=== PATIENT | male | born 1945 | race Caucasian/White ===

== ENCOUNTER → 2016-08-08 | Outpatient (CLI) | payer OTHER ==
[2016-08-08 15:12] LABS: CREATININE 1.7 mg/dL (0.7-1.3)
== END ==
LOC: CAT 14:15
PROVIDERS: Family Medicine
DX: J32.0 Chronic maxillary sinusitis (principal); R22.1 Localized swelling, mass and lump, neck

== ENCOUNTER 2018-07-23 10:53 | Inpatient (IN) | payer OTHER ==
[2018-07-23] VITALS (11 sets, daily range): BP systolic 106–130; BP diastolic 51–71
[~2018-07-23] VITALS: Ht 175.3 cm; Wt 76.4 kg
[2018-07-23 11:34] LABS: HEMATOCRIT 30.3 % (42.0-52.0); HEMOGLOBIN 10.1 gm/dL (14.0-18.0); MCH 27.5 pg (26.0-34.0); MCHC 33.3 g/dL (28.0-37.0); MCV 82.6 fL (80.0-100.0); RBC 3.66 mil/uL (4.50-6.00); RDW 18.1 % (10.5-14.5); WBC 5.2 thou/uL (4.0-11.0)
[2018-07-23 11:42] LABS: CALCIUM 9.3 mg/dL (8.5-10.1); POTASSIUM 4.3 mmol/L (3.5-5.1)
[2018-07-23] MEDS ORDERED: ADVAIR 100-501 EACH INH (12:17)
[2018-07-23] MEDS ORDERED: LASIX 40 MG TAB40 M2 PO (12:18)
[2018-07-23] MEDS ORDERED: SYNTHROID125 MC1 PO (12:19)
[2018-07-23] MEDS ORDERED: MAG-OXIDE400 MG PO (12:19)
[2018-07-23] MEDS ORDERED: KLOR-CON 1010 MEQ PO (12:20)
--- NOTE | 2018-07-23 16:57 | CATHLAB ---
[facility] [address] [place] [address] INVASIVE PROCEDURE REPORT Name: MYRIAM JOHNSON Room #: 212-[facility]#: [id number] ������������� Admission: 07/23/18 ������������� Attend Phys: Jordan Peter, Discharge: ��� ������������� ��� Date of : 49 Date of Service: 07/23/18 1656 �� Report #: [id number] �������� ��������������������������������������������[id number] THIS REPORT FOR: //name// APPROVED REPORT Study performed: 07/23/2018 13:48:27 Patient Details Patient Status: In-Patient Room #: The patient is a 73 year-old male Event Personnel Jordan Peter Docking Pilot, Zain Means RN, Justin Martin RN RN, Freda Galarza Monitor, Barbara Keyes RTR, SAWMILL HAND Scrub Procedures Performed Art Access - R femoral artery* Jimbo Access - R femoral vein 52623 Initial Mod Sed Same Phys/QHP Gr5y 300063 72323 Mod Sed Same Phys/QHP Ea 579343 Right and Left Heart Cath w/or w/o Coronarie 7029210 [facility]HC Aortogram Abdominal Peripheral Angio 383037 Hemostasis w/ Mynx BMS Place w/wo Plasty Single LAD [id number] BMSSINGLE Indication Chest pain Procedure Narrative The patient was brought urgently to the Cardiac Catheterization Laboratory and was prepped and draped in a sterile manner. The Right Groin^ was infiltrated with 1% Lidocaine subcutaneous anesthesia. A Right Heart Catheterization was performed with a 7 Fr. [place]-Terry catheter and pressure were recorded. Cardiac outputs were obtained by the Thermal Dilution method. A PINNACLE 6FR Sheath #[id number] sheath was inserted into the RFA^. Coronary angiography was performed using coronary diagnostic catheters. The right coronary system was accessed and visualized with a JR 4 catheter. The left coronary system was accessed and visualized with a JL 4 catheter. The left ventricle was accessed and visualized with a Pigtail catheter. Left ventricular/Aortic Valve gradient assessed via catheter pullback. Left ventriculogram was performed in AGUERO projection. An aortogram of the abdominal aorta was performed. Closure device was deployed with a 6 Fr Mynx. The patient tolerated the procedure well and there were no complications associated with the procedure. There was no hematoma. [facility] [address] [place] [address] INVASIVE PROCEDURE REPORT Name: MYRIAM JOHNSON Room #: 212-P [facility]#: [id number] ������������� Admission: 07/23/18 ������������� Attend Phys: Jordan Peter, Discharge: ��� ������������� ��� Date of : 49 Date of Service: 07/23/18 1656 �� Report #: [id number] �������� ��������������������������������������������[id number] Intraoperative Conscious Sedation Sedation start time: 14:37 Case end Time: 15:56 Fentanyl 25 mcg Versed 1 mg Fluoro Time: 17.22 minutes Dose: DAP 93658.00 cGycm2 3245 mGy Contrast Type and Amount: Omnipaque 200 ml Hemodynamics The right atrial mean pressure is 13 mmHg. The right ventricular pressure is 63/0 mmHg. The pulmonary artery pressure is 60/28 mmHg with a mean of 42 mmHg. The mean pulmonary capillary wedge pressure is 32 mmHg. The aortic pressure is 129/54 mmHg with a mean of 84 mmHg. The left ventricular pressure is 153/10 mmHg with a mean of mmHg. The left ventricular end diastolic pressure is 27 mmHg. The cardiac output using thermo method is 5.25 L/min. The cardiac index using thermo method is 2.76 L/min/m2. PCI Technique Lesion Percutaneous coronary intervention was performed on the proximal left anterior descending artery segment. A LAUNCHER 6FR EBU 4 #[id number] Guide Catheter was used to engage the ostium. A Luge Wire .014 x 182CM #[id number] Interventional Guidewire was used to cross the lesion. BALLOON DILATION A Balloon catheter Sprinter OTW 2.25 x 12 #[id number] was inserted and inflated up to 10.00atm for 19seconds. Additional Inflation: 12.00atm for 18seconds. Additional Inflation: 14.00atm for 22seconds. STENT DEPLOYMENT A bare metal stent INTEGRITY OTW 2.75 X 18 #[id number] was inserted and inflated up to 12.00atm for 22seconds. STENT DEPLOYMENT A bare metal stent INTEGRITY OTW 2.5 X 8 #[id number] was inserted and inflated up to 14.00atm for 24seconds. Additional Inflation: 20.00atm for 16seconds. Conclusion #1 successful PTCA stent of the proximal LAD tandem lesions with 25 and 2.75 bare-metal stents up to 2.9 yielding 0% residual and filling a diagonal branch. #2 unsuccessful PTCA of the mid LAD occlusion. However there is collateral filling from the right system and this diagonal branch [facility] [address] [place] [address] INVASIVE PROCEDURE REPORT Name: MYRIAM JOHNSON Room #: 212-P [facility]#: [id number] ������������� Admission: 07/23/18 ������������� Attend Phys: Jordan NestorOlinda FarnsworthBrittani, Discharge: ��� ������������� ��� Date of : 49 Date of Service: 07/23/18 1656 �� Report #: [id number] �������� ��������������������������������������������[id number] which now has markedly improved flow post proximal LAD stent. ( significant anterior apical defect is noted) #3 circumflex OM eccentric long 60% lesion and a proximal OM mild disease and a circumflex artery. There is significant distribution of the proximal OM system. Although anatomically nondominant #4 large dominant right coronary artery with eccentric 50-60% long mid vessel lesion tortuous system large PDA and smaller posterior lateral branch provides some collateral filling to a distal OM and distal LAD #5 large posterior lateral branches and eccentric 70% proximal lesion with the PDA diffusely diseased this collaterally fills the distal LAD as it extends around the apex #6 left main with distal lesion of 30% giving rise to LAD and circumflex #7 normal left ventricular size with an extensive anterior wall severe hypokinesis. Ejection fraction 30-35% #8 there is a 20 mm gradient on pullback across a moderate aortic valve stenosis. However I was able to cross this valve with the pigtail catheter. Less I would question this degree of stenosis. Would not consider this to be more than moderate in nature #8 aortogram abdominal no aneurysm brisk flow in renal and iliac system #9 successful right heart catheterization with significant elevations in pulmonary E wedge and PA pressure 70/30 range see above hemodynamics. Impression: Aggressive risk factor modification IV diuresis. Christian catheter is been placed. May be some improvement with stenting of the proximal LAD now filling a diagonal. Unsuccessful in opening up a mid blunted off the LAD. 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 Collateral filling is noted from other regions. Posterior lateral branch proximal segment is large and may be an area for possible stenting in the future all appears to be in the 70% range. Transfer to CCU in guarded condition will need aggressive diuresis and institution of medications for cardiomyopathy ischemic in nature. ��������������������������������������������� <ELECTRONICALLY SIGNED> ���������������������������������������� By: Jordan Peter MD, [facility] ��������������������������������������������� 07/23/18 1656 1656 1656 Jordan Peter MD, FACC /INF
--- NOTE | 2018-07-23 17:00 | NUR ---
RECEIVED PT FROM WASTE ELIMINATION, VSS. NSR R GROIN MYNX SITE WITHOUT HEMATOMA OR BRUIT HEARD. PT INSTRUCTED BEDREST WITH R LEG STRAIGHT X 3 HOURS. LUNGS CLEAR 2L SAT IS 100%. SEE DATA FLOW SHEET FOR FREQUENT GROIN CHECKS AND VITAL SIGNS. WILL CONTINUE TO MONITER AND CARE FOR PT PERPLAN OF CARE
--- NOTE | 2018-07-23 17:03 | EKG ---
[place] [address] 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 DALTON : 1945 Requested By: Jordan Peter Order Number: [id number] MD: Cheikh Tran Measurements Intervals [place] Rate: 67 P: 0 AL: 197 QRS: -27 QRSD: 101 T: 20 QT: 433 QTc: 457 Interpretive Statements Sinus arrhythmia Inferior infarct, old Anteroseptal infarct, age indeterminate No previous ECG available for comparison Electronically Signed On 07-23-2018 17:03:10 CDT by Cheikh Tran [email or web address] ��������������������������������������������� <ELECTRONICALLY SIGNED> ���������������������������������������� By: Cheikh Tran MD, [facility] ��������������������������������������������� 07/23/18 1703 113 113 Cheikh Tran MD, [facility] /EPI
[2018-07-24 00:14] VITALS: BP 113/59
--- NOTE | 2018-07-24 04:19 | NUR ---
ASSUMED PT CARE AT 1900. PT OFF BEDREST AT THIS TIME, A/OX4, VITAL SIGNS STABLE, ASSESSMENT CHARTED. GROIN SITE CLEAN, DRY, AND INTACT. NO HEMATOMA, 2/2 PULSES ON BOTH EXTREMITIES. NO COMPLAINTS OF PAIN. PT WALKED TO BATHROOM X1 ASSIST. TOLERATED ACTIVITY APPROPRIATLY. AT BEDSIDE AND STATES THAT HE IS DOING ALOT BETTER. PT RESTED WELL THROUGH THE NIGHT. SOMETIMES SITS BY THE SIDE OF THE BED FOR COMFORT. PT PROGRESSING TOWARD PLAN OF CARE. NWILL CONTINUE TO MONITOR.
[2018-07-24 04:26] LABS: HEMATOCRIT 31.2 % (42.0-52.0); HEMOGLOBIN 10.3 gm/dL (14.0-18.0); MCH 27.2 pg (26.0-34.0); MCHC 33.2 g/dL (28.0-37.0); MCV 82.1 fL (80.0-100.0); RBC 3.8 mil/uL (4.50-6.00); RDW 18.7 % (10.5-14.5); WBC 7.4 thou/uL (4.0-11.0)
[2018-07-24 04:35] VITALS: BP 132/52
[2018-07-24 04:43] LABS: ALBUMIN 3.3 g/dL (3.4-5.0); CALCIUM 9.1 mg/dL (8.5-10.1); CREATININE 1.1 mg/dL (0.7-1.3); POTASSIUM 3.8 mmol/L (3.5-5.1); TOTAL BILIRUBIN 0.2 mg/dL (<0.1-1.0); TOTAL PROTEIN 7.5 g/dL (6.4-8.2); TROPONIN-I 0.07 ng/mL (<0.06)
[2018-07-24 07:23] VITALS: BP 144/76
--- NOTE | 2018-07-24 08:48 | EKG ---
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 : 1945 Requested By: Eulalia Rowe Order Number: [id number] MD: Cheikh Tran Measurements Intervals [place] Rate: 67 P: 0 [place]: 192 QRS: -40 QRSD: 100 T: 64 QT: 458 QTc: 484 Interpretive Statements Sinus rhythm Inferior infarct, old Probable anteroseptal infarct, age indeterminate Compared to ECG 07/23/2018 11:31:48 No significant change was found Electronically Signed On 07-24-2018 8:48:16 CDT by Cheikh Tran [email or web address] ��������������������������������������������� <ELECTRONICALLY SIGNED> ���������������������������������������� By: Cheikh Tran MD, [facility] ��������������������������������������������� 07/24/18 0848 2 2 Cheikh Tran MD, [facility] /EPI
[2018-07-24 15:03] VITALS: BP 92/49
--- NOTE | 2018-07-24 19:34 | NUR ---
ASSESSMENT CHARTED. PT ALERT AND ORIENTED. PLEASANT AND COOPERATIVE WITH CARES. HAD LOW BP THIS EVENING. UP IN THE CHAIR. NO CONCERNS AT THIS TIME. WILL CONTINUE TO MONITOR.
[2018-07-25 03:22] VITALS: BP 116/63
--- NOTE | 2018-07-25 04:00 | NUR ---
ASSUMED PT CARE AT 1900. PT A/OX4, VITAL SIGNS STABLE, ASSESSMENT CHARTED. PT WAS IN CHAIR, EATING DINNER WITH . LATER ASSISTED PT TO BED. NO COMPLAINTS OF PAIN. PT RESTED WELL THROUGH THE NIGHT. AT BEDSIDE THROUGH THE NIGHT. PROGRESSING TOWARD PLAN OF CARE. WILL CONTINUE TO MONITOR.
[2018-07-25 05:02] LABS: CALCIUM 8.6 mg/dL (8.5-10.1); CREATININE 1.2 mg/dL (0.7-1.3); POTASSIUM 4.7 mmol/L (3.5-5.1)
[2018-07-25 08:20] VITALS: BP 107/56
[2018-07-25] MEDS ORDERED: DEMADEX20 MG PO (08:41)
[2018-07-25] MEDS ORDERED: ASA5UEC PO (08:41)
[2018-07-25] MEDS ORDERED: LISINOPRIL2.5 MG PO (08:41)
[2018-07-25] MEDS ORDERED: CLOPIDOGREL75 MG PO (08:41)
[2018-07-25] MEDS ORDERED: LIPITOR 20 MG T20 M1 PO (08:41)
[2018-07-25] MEDS ORDERED: COREG3.125 MG PO (08:41)
--- NOTE | 2018-07-25 09:31 | EKG ---
[place] [address] [address] [facility] [employer] 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 : 1945 Requested By: Cheikh Tran Order Number: [id number] MD: Cheikh Tran Measurements Intervals [place] Rate: 68 P: -1 [place]: 190 QRS: -38 QRSD: 97 T: 22 QT: 418 QTc: 445 Interpretive Statements Sinus rhythm Inferior infarct, old Probable anteroseptal infarct, age indeterminate Compared to ECG 07/24/2018 07:13:16 No significant changes Electronically Signed On 07-25-2018 9:31:45 CDT by Cheikh Tran [email or web address] ��������������������������������������������� <ELECTRONICALLY SIGNED> ���������������������������������������� By: Cheikh Tran MD, [facility] ��������������������������������������������� 07/25/1831 1 Cheikh Tran MD, [facility] /EPI
[2018-07-25 09:55] VITALS: BP 107/56
--- NOTE | 2018-07-25 12:24 | NUR ---
ASSESSMENT DOCUMENTED. VSS. DENIED HAVING PAIN OR DISCOMFORT. SEEN BY DR. BOYD. ORDERS GIVEN TO DISCHARGE PT TO HOME. DISCHARGE INSTRUCTIONS GIVEN TO PT AND . PT LEFT THE FACILITY ACCOMPANIED BY THE .
== END 2018-07-25 12:24 | disposition home or self-care (01) | DRG 248 ==
LOC: CATH 10:53 → 2N 16:49 → CATH 16:50 → 2N 16:50 → ENTRNSPT 07-25 12:10 → EDTRNSPTSTS 07-25 12:11 → 2N 07-25 12:24
PROVIDERS: Nurse Practitioner Adult Health; ADMIT Internal Medicine Cardiovascular Disease
PROC: 4A023N8 Measurement of Cardiac Sampling and Pressure, Bilateral, Percutaneous Approach (ICD-10-PCS; principal; 2018-07-23)
PROC: B4101ZZ Fluoroscopy of Abdominal Aorta using Low Osmolar Contrast (ICD-10-PCS; principal; 2018-07-23)
PROC: B2151ZZ Fluoroscopy of Left Heart using Low Osmolar Contrast (ICD-10-PCS; principal; 2018-07-23)
PROC: B2111ZZ Fluoroscopy of Multiple Coronary Arteries using Low Osmolar Contrast (ICD-10-PCS; principal; 2018-07-23)
PROC: 02703EZ Dilation of Coronary Artery, One Artery with Two Intraluminal Devices, Percutaneous Approach (ICD-10-PCS; principal; 2018-07-23)
DX: I25.10 Atherosclerotic heart disease of native coronary artery without angina pectoris (principal); I50.23 Acute on chronic systolic (congestive) heart failure; E78.5 Hyperlipidemia, unspecified; I11.0 Hypertensive heart disease with heart failure; I35.0 Nonrheumatic aortic (valve) stenosis; I25.5 Ischemic cardiomyopathy; Z79.82 Long term (current) use of aspirin; Z79.899 Other long term (current) drug therapy
CPT/HCPCS: 10081